=== PATIENT | male | born 1995 | race Caucasian/White ===

== ENCOUNTER 2017-09-02 21:52 | Emergency (ER) | payer OTHER ==
[~2017-09-02] VITALS: Ht 182.9 cm; Wt 68.0 kg
[2017-09-02 22:22] VITALS: Ht 182.9 cm; Wt 68.0 kg
[2017-09-03 00:32] VITALS: BP 129/77
== END 2017-09-03 00:32 | disposition home or self-care (01) ==
LOC: ED 21:52
DX: S01.81XA Laceration without foreign body of other part of head, initial encounter (principal); W01.0XXA Fall on same level from slipping, tripping and stumbling without subsequent striking against object, initial encounter; Y93.89 Activity, other specified; Y92.89 Other specified places as the place of occurrence of the external cause; Y99.8 Other external cause status
CPT/HCPCS: J2001